=== PATIENT | male | born 1940 | race Hispanic/Latino ===

== ENCOUNTER 2018-09-27 13:57 | Emergency (ER) | payer MEDICARE ==
[2018-09-27 14:40] LABS: BASOPHILS % (AUTO) 0.8 % (0.0-5.0); EOSINOPHILS % (AUTO) 1.8 % (0.0-8.0); HEMATOCRIT 47.5 % (42-54); LYMPHOCYTES % (AUTO) 19.7 % (21.0-51.0); MEAN CORPUSCULAR HEMOGLOBIN 30.7 pg (27.0-33.0); MEAN CORPUSCULAR HGB CONC 34.8 g/dL (32.0-36.0); MEAN CORPUSCULAR VOLUME 88.2 fL (79-99); MONOCYTES % (AUTO) 10.8 % (3.0-13.0); NEUTROPHILS % (AUTO) 66.9 % (40.0-77.0); NUCLEATED RED BLOOD CELLS 0.1 % (0.0-0.19); PLATELET COUNT (AUTO) 237 K/uL (130-400); RED BLOOD CELL COUNT(AUTO) 5.39 MIL/uL (4.50-6.20); RED CELL DISTRIBUTION WIDTH 13.8 % (11.0-15.5); WHITE BLOOD COUNT (AUTO) 9.1 K/uL (4.8-10.8)
[2018-09-27] MEDS ORDERED: 0.9% SODIUM CHLORIDE 1000 ML IV BAG IV ONE (14:45)
[2018-09-27 14:53] LABS: CREATININE 1.5 mg/dL (0.5-1.5); POTASSIUM 3.2 mmol/L (3.5-5.1)
[2018-09-27 14:55] LABS: APPEARANCE,URINE Clear (CLEAR); BILIRUBIN,URINE Negative (NEGATIVE); COLOR,URINE Yellow (YELLOW); GLUCOSE, URINE (UA) Negative (NEGATIVE); KETONES,URINE Negative (NEGATIVE); LEUKOCYTE ESTERASE ,URINE Trace (NEGATIVE); NITRATE,URINE Negative (NEGATIVE); OCCULT BLOOD,URINE Negative (NEGATIVE); PROTEIN,URINE Trace mg/dL (NEGATIVE)
[2018-09-27 15:28] LABS: BACTERIA,URINE Rare /HPF (None Seen); RBC,URINE None Seen /HPF (0-1); WBC,URINE 0-1 /HPF (0-1)
== END 2018-09-27 17:06 | disposition home or self-care (01) ==
LOC: EDH 13:57
DX: E86.0 Dehydration (principal); R42 Dizziness and giddiness; I10 Essential (primary) hypertension; I25.10 Atherosclerotic heart disease of native coronary artery without angina pectoris; E78.5 Hyperlipidemia, unspecified; K21.9 Gastro-esophageal reflux disease without esophagitis
CPT/HCPCS: 36415; 70450; 80048; 81001; 84484; 85025; 93005; 96360; 96361; 99284; J7030

== ENCOUNTER 2018-10-21 06:05 | Inpatient (IN) | payer MEDICARE | END 2018-10-22 11:20 | disposition home or self-care (01) | LOC: DAHIP 06:05 → 4AH 13:34 | PROC: 0QB00ZZ Excision of Lumbar Vertebra, Open Approach (ICD-10-PCS; principal; 2018-10-21 07:30) | PROC: 0SG30AJ Fusion of Lumbosacral Joint with Interbody Fusion Device, Posterior Approach, Anterior Column, Open Approach (ICD-10-PCS; 2018-10-21 07:30) | PROC: 0SG30J1 Fusion of Lumbosacral Joint with Synthetic Substitute, Posterior Approach, Posterior Column, Open Approach (ICD-10-PCS; 2018-10-21 07:30) | DX: M48.061 Spinal stenosis, lumbar region without neurogenic claudication (principal); M43.10 Spondylolisthesis, site unspecified; M51.26 Other intervertebral disc displacement, lumbar region ==

== ENCOUNTER 2022-07-05 07:33 | Inpatient (IN) | payer MEDICARE, OTHER ==
[2022-07-05] VITALS (25 sets, daily range): BP systolic 98–147; BP diastolic 44–109
[~2022-07-05] VITALS: Ht 165.1 cm; Wt 63.1 kg
[~2022-07-05 07:33] MED LIST: AEC81 PO; ALPR0.255 PO; CLOP-31 PO; SIMV-46 PO
[2022-07-05 08:19] LABS: BASOPHILS % (AUTO) 0.4 % (0.0-5.0); EOSINOPHILS % (AUTO) 1.9 % (0.0-8.0); HEMATOCRIT 38.4 % (42-54); LYMPHOCYTES % (AUTO) 21.5 % (21.0-51.0); MEAN CORPUSCULAR HEMOGLOBIN 30.4 pg (27.0-33.0); MEAN CORPUSCULAR HGB CONC 33.9 g/dL (32.0-36.0); MEAN CORPUSCULAR VOLUME 89.7 fL (79-99); MONOCYTES % (AUTO) 7.9 % (3.0-13.0); PLATELET COUNT (AUTO) 278 K/uL (130-400); RED BLOOD CELL COUNT(AUTO) 4.28 MIL/uL (4.50-6.20); RED CELL DISTRIBUTION WIDTH 13.4 % (11.0-15.5); WHITE BLOOD COUNT (AUTO) 14.2 K/uL (4.8-10.8)
[2022-07-05] MEDS ORDERED: 0.9%NACL 1000ML 1,000 ML IV ONE (08:30)
[2022-07-05] MEDS ORDERED: PANTOPRAZOLE 40 MG/VIAL IVP SCH (08:30)
[2022-07-05 08:40] LABS: ALBUMIN 3.5 g/dL (3.5-5.0); TOTAL PROTEIN, SERUM 6.6 g/dL (6.0-8.3)
[2022-07-05 08:42] LABS: INR 1.11 (0.85-1.15)
[2022-07-05 08:43] LABS: PARTIAL THROMBOPLASTIN TIME 29.6 SEC (26.3-35.5)
[2022-07-05] MEDS: PANTOPRAZOLE 40MG INJ 80 MG in 0.9%NACL 100ML 100 ML IVP SCH ×2 (08:43→16:05)
[2022-07-05 10:09] LABS: APPEARANCE,URINE CLEAR (CLEAR); BILIRUBIN,URINE SMALL mg/dL (NEGATIVE); COLOR,URINE YELLOW (YELLOW); GLUCOSE, URINE (UA) NEGATIVE (NEGATIVE); KETONES,URINE NEGATIVE (NEGATIVE); LEUKOCYTE ESTERASE ,URINE NEGATIVE Leu/uL (NEGATIVE); NITRATE,URINE NEGATIVE (NEGATIVE); OCCULT BLOOD,URINE TRACE-INTACT (NEGATIVE); PROTEIN,URINE TRACE mg/dL (NEGATIVE)
[2022-07-05 10:38] LABS: RBC,URINE 0-1 /HPF (0-1)
[2022-07-05 10:39] LABS: BACTERIA,URINE Few /HPF (None Seen); SQUAMOUS EPITHELIAL CELL,UR 0-2 /HPF (0-2); WBC,URINE 0-1 /HPF (0-1)
[2022-07-05 10:41] LABS: URIC ACID CRYSTALS,URINE Few /LPF (None Seen)
[2022-07-05] MEDS ORDERED: OCTREOTIDE ACETATE 1,250 MCG in 0.9% NACL 250ML 250 ML IV SCH (12:00)
[2022-07-05] MEDS ORDERED: OCTREOTIDE ACETATE 100 MCG/ML AMP IV SCH (12:00)
[2022-07-05 12:30] LABS: HEMATOCRIT 30.6 % (42-54)
[2022-07-05] MEDS: CEFTRIAXONE 1G VIAL IVP SCH (13:17)
[2022-07-05 14:07] LABS: HEMATOCRIT 29.5 % (42-54)
[2022-07-05] MEDS ORDERED: LORAZEPAM 2 MG/ML 1 ML VIAL IVP PRN (14:30)
[2022-07-05] MEDS ORDERED: THIAMINE HCL 100 MG/ML 2ML VIAL IVP SCH (14:30)
[2022-07-05] MEDS ORDERED: CHLORDIAZEPOXIDE HCL 25 MG CAP PO PRN (14:30)
[2022-07-05] MEDS ORDERED: METO-409 PO (15:06)
[2022-07-05] MEDS ORDERED: CLOP-31 PO (15:06)
[2022-07-05] MEDS ORDERED: AEC81 PO (15:06)
[2022-07-05] MEDS ORDERED: APIX2.5T PO (15:06)
[2022-07-05] MEDS ORDERED: SUCR1TAB28 PO (15:06)
[2022-07-05] MEDS ORDERED: AMIO400T4 PO (15:06)
[2022-07-05] MEDS ORDERED: SIMV40TA59 PO (15:06)
[2022-07-05] MEDS: M.V.I. IV [ADULT] 10 ML, FOLIC ACID 1 MG, THIAMINE HCL 400 MG in 0.9%NACL 1000ML 1,000 ML IV SCH (16:06)
[2022-07-05] MEDS ORDERED: AMIODARONE 900MG VIAL 360 MG in DEXTROSE 5%-WATER 200 ML IV SCH (16:30)
[2022-07-05] MEDS ORDERED: AMIODARONE 900MG VIAL 540 MG in DEXTROSE 5%-WATER 300 ML IV SCH (16:30)
[2022-07-05] MEDS: METOPROLOL TARTRATE 25 MG TAB PO SCH ×2 (17:44→20:48)
[2022-07-05 18:18] LABS: BASOPHILS % (AUTO) 0.5 % (0.0-5.0); EOSINOPHILS % (AUTO) 2.2 % (0.0-8.0); LYMPHOCYTES % (AUTO) 17.8 % (21.0-51.0); MEAN CORPUSCULAR HEMOGLOBIN 30.3 pg (27.0-33.0); MEAN CORPUSCULAR HGB CONC 33.1 g/dL (32.0-36.0); MEAN CORPUSCULAR VOLUME 91.5 fL (79-99); NEUTROPHILS % (AUTO) 70.8 % (40.0-77.0); PLATELET COUNT (AUTO) 185 K/uL (130-400); RED BLOOD CELL COUNT(AUTO) 2.84 MIL/uL (4.50-6.20); RED CELL DISTRIBUTION WIDTH 13.4 % (11.0-15.5); WHITE BLOOD COUNT (AUTO) 8.2 K/uL (4.8-10.8)
[2022-07-06] VITALS (67 sets, daily range): BP systolic 88–130; BP diastolic 38–90
[2022-07-06] MEDS: PANTOPRAZOLE 40MG INJ 80 MG in 0.9%NACL 100ML 100 ML IVP SCH ×2 (01:41→14:30)
[2022-07-06 03:43] LABS: BASOPHILS % (AUTO) 0.6 % (0.0-5.0); HEMATOCRIT 27.2 % (42-54); LYMPHOCYTES % (AUTO) 14.8 % (21.0-51.0); MEAN CORPUSCULAR HEMOGLOBIN 30.4 pg (27.0-33.0); MEAN CORPUSCULAR HGB CONC 32.7 g/dL (32.0-36.0); MEAN CORPUSCULAR VOLUME 92.8 fL (79-99); MONOCYTES % (AUTO) 6.9 % (3.0-13.0); NEUTROPHILS % (AUTO) 75.1 % (40.0-77.0); PLATELET COUNT (AUTO) 214 K/uL (130-400); RED BLOOD CELL COUNT(AUTO) 2.93 MIL/uL (4.50-6.20); RED CELL DISTRIBUTION WIDTH 13.5 % (11.0-15.5)
[2022-07-06 04:10] LABS: ALBUMIN 2.7 g/dL (3.5-5.0); CREATININE 1.1 mg/dL (0.5-1.5); MAGNESIUM 1.8 mg/dL (1.80-2.40); PHOSPHORUS 3.4 mg/dL (2.5-4.9); POTASSIUM 4.4 mmol/L (3.5-5.1); TOTAL PROTEIN, SERUM 5.2 g/dL (6.0-8.3)
[2022-07-06] MEDS ORDERED: PROPOFOL 10 MG/ML 20ML VIAL IV ONE (08:23)
[2022-07-06] MEDS ORDERED: LIDOCAINE PF 100MG/5ML (2%) SYRINGE 5ML ONE (08:26)
[2022-07-06] MEDS ORDERED: THIAMINE HCL 100 MG/ML 2ML VIAL IVP SCH (09:00)
[2022-07-06] MEDS: METOPROLOL TARTRATE 25 MG TAB PO SCH ×4 (09:45→20:26)
[2022-07-06 11:40] LABS: HEMATOCRIT 25.7 % (42-54)
[2022-07-06] MEDS: CEFTRIAXONE 1G VIAL IVP SCH (12:10)
[2022-07-06] MEDS ORDERED: 0.9%NACL 1000ML 1,000 ML IV ONE (13:38)
[2022-07-06] MEDS: M.V.I. IV [ADULT] 10 ML, FOLIC ACID 1 MG, THIAMINE HCL 400 MG in 0.9%NACL 1000ML 1,000 ML IV SCH (14:37)
[2022-07-06] MEDS: SUCRALFATE 1 GM TABLET PO SCH ×2 (17:39→20:26)
[2022-07-06] MEDS: PANTOPRAZOLE 40 MG TAB DR PO SCH (20:26)
[2022-07-06] MEDS: AMIODARONE 200 MG TABLET PO SCH (20:26)
[2022-07-07 04:00] VITALS: BP 116/78
[2022-07-07 04:41] LABS: BASOPHILS % (AUTO) 0.4 % (0.0-5.0); EOSINOPHILS % (AUTO) 2.2 % (0.0-8.0); HEMATOCRIT 25.1 % (42-54); LYMPHOCYTES % (AUTO) 15.6 % (21.0-51.0); MEAN CORPUSCULAR HEMOGLOBIN 30.7 pg (27.0-33.0); MEAN CORPUSCULAR HGB CONC 33.5 g/dL (32.0-36.0); MEAN CORPUSCULAR VOLUME 91.6 fL (79-99); MONOCYTES % (AUTO) 8.2 % (3.0-13.0); NEUTROPHILS % (AUTO) 73.2 % (40.0-77.0); PLATELET COUNT (AUTO) 209 K/uL (130-400); RED BLOOD CELL COUNT(AUTO) 2.74 MIL/uL (4.50-6.20); RED CELL DISTRIBUTION WIDTH 13.7 % (11.0-15.5); WHITE BLOOD COUNT (AUTO) 11.4 K/uL (4.8-10.8)
[2022-07-07 05:00] LABS: POTASSIUM 4.1 mmol/L (3.5-5.1)
[2022-07-07 07:20] VITALS: BP 120/84
[2022-07-07] MEDS: M.V.I. IV [ADULT] 10 ML, FOLIC ACID 1 MG, THIAMINE HCL 400 MG in 0.9%NACL 1000ML 1,000 ML IV SCH (09:00)
[2022-07-07] MEDS ORDERED: METOPROLOL SUCCINATE 50 MG TAB.SR.24H PO SCH ×2 (09:00→10:30)
[2022-07-07] MEDS: AMIODARONE 200 MG TABLET PO SCH ×2 (09:08→20:15)
[2022-07-07] MEDS: PANTOPRAZOLE 40 MG TAB DR PO SCH ×2 (09:08→20:15)
[2022-07-07] MEDS: SUCRALFATE 1 GM TABLET PO SCH ×4 (09:08→20:14)
[2022-07-07] MEDS: CEFTRIAXONE 1G VIAL IVP SCH (12:06)
[2022-07-07 12:10] VITALS: BP 108/77
[2022-07-07] MEDS ORDERED: 0.9%NACL 1000ML 1,000 ML IV ONE (14:21)
[2022-07-07 16:50] LABS: HEMATOCRIT 28.1 % (42-54)
[2022-07-07 17:20] VITALS: BP 108/70
[2022-07-07 20:20] VITALS: BP 102/80
[2022-07-08] VITALS (7 sets, daily range): BP systolic 108–127; BP diastolic 67–88
[2022-07-08] MEDS: THIAMINE HCL 100 MG TABLET PO SCH (08:23)
[2022-07-08] MEDS: PANTOPRAZOLE 40 MG TAB DR PO SCH ×2 (08:23→20:31)
[2022-07-08] MEDS: AMIODARONE 200 MG TABLET PO SCH ×2 (08:24→20:31)
[2022-07-08] MEDS: Vitamin B Complex/Vit C/Folic Acid PO SCH (08:24)
[2022-07-08] MEDS: SUCRALFATE 1 GM TABLET PO SCH ×4 (08:24→22:36)
[2022-07-08] MEDS: METOPROLOL SUCCINATE 50 MG TAB.SR.24H PO SCH (08:27)
[2022-07-08] MEDS ORDERED: DIGOXIN 250 MCG/ML 2ML AMP IV SCH (11:00)
[2022-07-08] MEDS: CEFTRIAXONE 1G VIAL IVP SCH (11:57)
[2022-07-08] MEDS ORDERED: DIGOXIN 125 MCG TABLET PO SCH ×2 (17:00→23:00)
[2022-07-08] MEDS ORDERED: DIGOXIN 250 MCG/ML 2ML AMP IV ONE ×2 (18:00→23:00)
[2022-07-09 04:00] VITALS: BP 121/67
[2022-07-09 04:40] LABS: BASOPHILS % (AUTO) 0.4 % (0.0-5.0); EOSINOPHILS % (AUTO) 2.5 % (0.0-8.0); HEMATOCRIT 25.4 % (42-54); LYMPHOCYTES % (AUTO) 16.7 % (21.0-51.0); MEAN CORPUSCULAR HEMOGLOBIN 30.6 pg (27.0-33.0); MEAN CORPUSCULAR HGB CONC 33.5 g/dL (32.0-36.0); MEAN CORPUSCULAR VOLUME 91.4 fL (79-99); MONOCYTES % (AUTO) 11.2 % (3.0-13.0); NEUTROPHILS % (AUTO) 68.8 % (40.0-77.0); PLATELET COUNT (AUTO) 236 K/uL (130-400); RED BLOOD CELL COUNT(AUTO) 2.78 MIL/uL (4.50-6.20); RED CELL DISTRIBUTION WIDTH 13.8 % (11.0-15.5); WHITE BLOOD COUNT (AUTO) 7.5 K/uL (4.8-10.8)
[2022-07-09 04:50] LABS: CREATININE 0.9 mg/dL (0.5-1.5); POTASSIUM 3.1 mmol/L (3.5-5.1)
[2022-07-09 04:54] LABS: B-TYPE NATRIURETIC PEPTIDE 312 pg/mL (0-100)
[2022-07-09 08:00] VITALS: BP 116/61
[2022-07-09] MEDS ORDERED: POTASSIUM CHLORIDE 20MEQ/100ML 100 ML IV PRN (08:00)
[2022-07-09] MEDS ORDERED: LIDOCAINE HCL-MPF 1% 2ML VIAL IV PRN (08:00)
[2022-07-09] MEDS ORDERED: POTASSIUM CHLORIDE 10% ELIXIR 20 MEQ/15 ML UDCUP PO PRN (08:00)
[2022-07-09] MEDS: PANTOPRAZOLE 40 MG TAB DR PO SCH ×2 (08:38→21:11)
[2022-07-09] MEDS: METOPROLOL SUCCINATE 50 MG TAB.SR.24H PO SCH (08:38)
[2022-07-09] MEDS: SUCRALFATE 1 GM TABLET PO SCH ×4 (08:38→21:11)
[2022-07-09] MEDS: AMIODARONE 200 MG TABLET PO SCH ×2 (08:38→21:11)
[2022-07-09] MEDS: THIAMINE HCL 100 MG TABLET PO SCH (08:38)
[2022-07-09] MEDS: Vitamin B Complex/Vit C/Folic Acid PO SCH (08:38)
[2022-07-09] MEDS: CEFTRIAXONE 1G VIAL IVPB SCH (08:38)
[2022-07-09] MEDS: KCL 20 MEQ ERTAB PO PRN ×3 (08:44→11:46)
[2022-07-09 11:51] VITALS: BP 116/65
[2022-07-09 12:14] LABS: RETICULOCYTE % (AUTO) 5.19 % (0.42-2.23)
[2022-07-09 12:47] LABS: % IRON SATURATION 9.9 % (30-44)
[2022-07-09 16:00] VITALS: BP 127/88
[2022-07-09] MEDS ORDERED: DIGOXIN 125 MCG TABLET PO SCH (16:00)
[2022-07-09] MEDS ORDERED: EPOETIN ALFA-EPBX (NON-ESRD) 10,000 UNIT/ML VIAL SQ SCH (16:30)
[2022-07-09] MEDS ORDERED: CYANOCOBALAMIN (VITAMIN B-12) 1000 MCG/ML 1ML VIAL IM SCH (16:30)
[2022-07-09] MEDS ORDERED: IRON SUCROSE COMPLEX 500 MG in 0.9%NACL 50ML 50 ML IV SCH (16:30)
[2022-07-09 20:00] VITALS: BP 127/97
[2022-07-10] VITALS: BP 123/82
[2022-07-10 04:00] VITALS: BP 116/73
[2022-07-10 05:10] LABS: BASOPHILS % (AUTO) 0.5 % (0.0-5.0); EOSINOPHILS % (AUTO) 2.5 % (0.0-8.0); LYMPHOCYTES % (AUTO) 21.6 % (21.0-51.0); MEAN CORPUSCULAR HEMOGLOBIN 30.8 pg (27.0-33.0); MEAN CORPUSCULAR HGB CONC 33.8 g/dL (32.0-36.0); MEAN CORPUSCULAR VOLUME 90.9 fL (79-99); MONOCYTES % (AUTO) 13.1 % (3.0-13.0); NEUTROPHILS % (AUTO) 61.8 % (40.0-77.0); PLATELET COUNT (AUTO) 260 K/uL (130-400); RED BLOOD CELL COUNT(AUTO) 2.86 MIL/uL (4.50-6.20); RED CELL DISTRIBUTION WIDTH 14.1 % (11.0-15.5); WHITE BLOOD COUNT (AUTO) 7.5 K/uL (4.8-10.8)
[2022-07-10 05:39] LABS: DIGOXIN 1.12 ng/mL (0.50-2.00); MAGNESIUM 1.9 mg/dL (1.80-2.40); PHOSPHORUS 2.8 mg/dL (2.5-4.9); POTASSIUM 3.4 mmol/L (3.5-5.1)
[2022-07-10 07:30] VITALS: BP 133/81
[2022-07-10] MEDS: METOPROLOL SUCCINATE 50 MG TAB.SR.24H PO SCH (08:42)
[2022-07-10] MEDS: PANTOPRAZOLE 40 MG TAB DR PO SCH (08:42)
[2022-07-10] MEDS: THIAMINE HCL 100 MG TABLET PO SCH (08:42)
[2022-07-10] MEDS: SUCRALFATE 1 GM TABLET PO SCH (08:42)
[2022-07-10] MEDS: Vitamin B Complex/Vit C/Folic Acid PO SCH (08:43)
[2022-07-10] MEDS: AMIODARONE 200 MG TABLET PO SCH (08:43)
[2022-07-10] MEDS: KCL 20 MEQ ERTAB PO PRN (08:45)
[2022-07-10] MEDS: CEFTRIAXONE 1G VIAL IVPB SCH (08:45)
[2022-07-10 11:00] VITALS: BP 119/83
[2022-07-10] MEDS ORDERED: DIGO125T71 PO (11:01)
[2022-07-10] MEDS ORDERED: SUCR1TAB PO (11:01)
[2022-07-10] MEDS ORDERED: AMIO200T44 PO (11:01)
[2022-07-10] MEDS ORDERED: METO50TA9 PO (11:01)
[2022-07-10] MEDS ORDERED: ATOR40TA69 PO (11:01)
[2022-07-10] MEDS ORDERED: Folic Acid/Vitamin B Comp W-C PO (11:01)
[2022-07-10] MEDS ORDERED: PANT40TA PO (11:01)
[2022-07-10] MEDS ORDERED: AMIO200T68 PO (11:01)
[2022-07-10] MEDS ORDERED: ATORVASTATIN 40 MG TABLET PO SCH (21:00)
== END 2022-07-10 14:29 | disposition home or self-care (01) | DRG 377 ==
LOC: EDH 07:33 → EDHIP 11:41 → 2CH 13:40 → 4AH 07-06 23:57
PROVIDERS: ADMIT Internal Medicine; ATTEND Internal Medicine
PROC: 0DJ08ZZ Inspection of Upper Intestinal Tract, Via Natural or Artificial Opening Endoscopic (ICD-10-PCS; principal; 2022-07-06)
DX: K26.4 Chronic or unspecified duodenal ulcer with hemorrhage (principal); I21.A1 Myocardial infarction type 2; D62 Acute posthemorrhagic anemia; D68.69 Other thrombophilia; I50.42 Chronic combined systolic (congestive) and diastolic (congestive) heart failure; I48.92 Unspecified atrial flutter; E87.1 Hypo-osmolality and hyponatremia; T45.515A Adverse effect of anticoagulants, initial encounter; I11.0 Hypertensive heart disease with heart failure; I25.10 Atherosclerotic heart disease of native coronary artery without angina pectoris; I48.0 Paroxysmal atrial fibrillation; E78.5 Hyperlipidemia, unspecified; D72.829 Elevated white blood cell count, unspecified; Z79.899 Other long term (current) drug therapy; Z79.01 Long term (current) use of anticoagulants; Z98.61 Coronary angioplasty status; Z79.82 Long term (current) use of aspirin; Z79.02 Long term (current) use of antithrombotics/antiplatelets
CPT/HCPCS: 36415; 43235; 71045; 80048; 80053; 80162; 81001; 82270; 82550; 82607; 82728; 82746; 83540; 83550; 83735; 83874; 83880; 84100; 84132; 84484; 85014; 85018; 85025; 85045; 85610; 85730; 86850; 86900; 86901; 86923; 93005; 93306; 93356; 93970; 94760; C9113; G0378; J0282; J0696; J1160; J1756; J2001; J2060; J2354; J2704; J3411; J3420; J3490; J7030; J7050; J7060